=== PATIENT | male | born 2000 | race Caucasian/White ===

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

== ENCOUNTER 2020-08-01 17:14 | Emergency (ER) | payer OTHER ==
[~2020-08-01] VITALS: Ht 175.3 cm; Wt 61.2 kg
[~2020-08-01 17:14] MED LIST changes: +AZITHROMYCIN 2250 MG PO; +SUPRAX400 M1 PO
[2020-08-01] MEDS ORDERED: AZITHROMYCIN 2250 MG PO (17:38)
[2020-08-01] MEDS ORDERED: SUPRAX400 M1 PO (17:38)
[2020-08-01 17:42] VITALS: BP 120/72
== END 2020-08-01 17:42 | disposition home or self-care (01) ==
LOC: M.ERS 17:14
DX: R36.9 Urethral discharge, unspecified (principal); Z20.2 Contact with and (suspected) exposure to infections with a predominantly sexual mode of transmission; Z88.1 Allergy status to other antibiotic agents; Z88.2 Allergy status to sulfonamides; Z90.89 Acquired absence of other organs